=== PATIENT | female | born 1940 | race Caucasian/White ===

== ENCOUNTER 2019-12-25 15:12 | Emergency (ER) | payer MEDICARE, OTHER ==
[~2019-12-25] VITALS: Ht 165.1 cm; Wt 104.5 kg
[2019-12-25 15:21] VITALS: Ht 165.1 cm; Wt 104.5 kg
[2019-12-25 15:43] LABS: BASOPHILS 0.1 % (0-2); EOSINOPHILS 0.7 % (0-7); HEMATOCRIT 40.7 % (36.0-48.0); HEMOGLOBIN 13.2 g/dL (12-16); IMMATURE GRANULOCYTES 0.3 % (0-5); LYMPHOCYTES 6.2 % (15-50); MCH 32.5 pg (26.0-34.0); MCHC 32.4 g/dL (31.0-37.0); MCV 100.2 fL (80.0-100.0); MEAN PLATELET VOLUME 9.8 fL (7.4-10.4); MONOCYTES 6.2 % (2-11); NEUTROPHILS 86.5 % (40-80); PLATELET COUNT 233 10x3/uL (130-400); RBC 4.06 10x6/uL (4.00-5.40); RDW 13.1 % (11.5-14.5); WBC 11.5 10x3/uL (4.8-10.8)
[2019-12-25] MEDS ORDERED: LIPITOR20 MG PO (16:15)
[2019-12-25] MEDS ORDERED: TOPROL XL100 MG PO (16:15)
[2019-12-25] MEDS ORDERED: TRAZODONE HCL150 MG PO (16:15)
[2019-12-25] MEDS ORDERED: NORVASC10 MG PO (16:17)
[2019-12-25] MEDS ORDERED: MULTI-DAY VITAM1 TAB (16:17)
[2019-12-25] MEDS ORDERED: COZAAR50 MG PO (16:17)
[2019-12-25] MEDS ORDERED: MULTI-DAY VITAM1 TAB PO (16:17)
[2019-12-25] MEDS ORDERED: ASPIRIN81 MG PO (16:17)
[2019-12-25] MEDS ORDERED: PROBIOTIC1 EAC1 PO (16:18)
[2019-12-25 16:46] LABS: BILIRUBIN NEGATIVE (NEGATIVE); GLUCOSE NEGATIVE (NEGATIVE); KETONE NEGATIVE (NEGATIVE); NITRITE NEGATIVE (NEGATIVE); UROBILINOGEN NORMAL (NORMAL)
[2019-12-25 17:04] LABS: ALBUMIN 3.6 g/dL (3.4-5.0); ALKALINE PHOSPHATASE 315 U/L (30-120); ALT (SGPT) 221 U/L (10-68); BILIRUBIN - TOTAL 2.42 mg/dL (0.2-1.3); CALC OSMOLALITY 282 mosm/kg (275-300); CALCIUM 8.5 mg/dL (8.5-10.1); CARBON DIOXIDE 24.6 mmol/L (21.0-32.0); CHLORIDE - SERUM 102 mmol/L (98-107); GLUCOSE 156 mg/dL (74-106); POTASSIUM - SERUM 3.3 mmol/L (3.5-5.1); PROTEIN - SERUM 7.5 g/dL (6.4-8.2); SODIUM 139 mmol/L (136-145); UREA NITROGEN 17 mg/dL (7-18); eGFR NON AFRICAN AMERICAN 57 mL/min (90-120)
[2019-12-25 17:06] LABS: AMYLASE - SERUM 3297 U/L (25-115); LIPASE 10360 U/L (73-393); TROPONIN-I < 0.017 ng/mL (0.000-0.060)
[2019-12-25 21:34] VITALS: BP 140/56
== END 2019-12-25 20:56 | disposition other institution (70) ==
LOC: D.ER 15:12
PROVIDERS: Family Medicine
DX: K80.80 Other cholelithiasis without obstruction (principal); K80.50 Calculus of bile duct without cholangitis or cholecystitis without obstruction; R11.2 Nausea with vomiting, unspecified; R10.13 Epigastric pain; I10 Essential (primary) hypertension; K21.9 Gastro-esophageal reflux disease without esophagitis